=== PATIENT | female | born 1985 | race Caucasian/White ===

== ENCOUNTER → 2019-09-26 09:58 | Outpatient (CLI) | payer OTHER, SELFPAY ==
--- NOTE | 2019-09-26 10:00 | DI.RAD.S_ITS ---
PROCEDURE: XR RIBS LT MIN 3V W CXR1V INDICATIONS: L rib pain behind shoulder pain TECHNIQUE: 3 views of the left ribs were acquired, along with a single view chest. COMPARISON: None. FINDINGS: Surgical changes and devices: None. Bones and chest wall: No fractures or dislocations. No suspicious bony lesions. Overlying soft tissues appear unremarkable. Lungs and pleura: No pleural effusions or pneumothorax. Lungs appear clear. Mediastinum: Mediastinal contours appear normal. Heart size is normal. IMPRESSION: No gross left rib fracture or dislocation. No acute cardiopulmonary pathology. Dictated by: Crow Jara M.D. on 09/26/2019 at 10:31 Approved by: Crow Jara M.D. on 09/26/2019 at 10:36
== END ==
PROVIDERS: PCP Registered Nurse Diabetes Educator; Visit Provider Nurse Practitioner
DX: R07.81 Pleurodynia (principal)
CPT/HCPCS: 71101

== ENCOUNTER → 2020-06-08 08:12 | Outpatient (CLI) | payer OTHER, SELFPAY ==
[2020-06-08 09:40] LABS: Add Manual Diff / Slide Review NO; Basophils Absolute Auto 0 /uL (0-100); Basophils Percent Auto 0.2 % (0-2); Eosinophils Absolute Auto 100 /uL (0-450); Eosinophils Percent Auto 2.2 % (2-4); Hematocrit 40.8 % (36-46); Hemoglobin 14.4 g/dL (12.0-16.0); Lymphocytes Absolute Auto 1300 /uL (1100-4500); Lymphocytes Percent Auto 19.9 % (25-40); Mean Corpuscular HGB Conc 35.2 % (30-36); Mean Corpuscular Hemoglobin 33.7 PG (26-34); Mean Corpuscular Volume 95.8 fL (80-100); Monocytes Absolute Auto 400 /uL (0-900); Monocytes Percent Auto 6.6 % (3-14); Neutrophils Absolute Auto 4600 /uL (1500-7000); Neutrophils Percent Auto 71.1 % (50-75); Platelet Count 201 X10^3/uL (150-400); Red Blood Cell Count 4.26 X10^6/uL (4.0-5.2); Red Cell Distribution Width 12.7 % (11.6-14.8); White Blood Cell Count 6.4 X10^3/uL (4.5-11.0)
[2020-06-08 09:52] LABS: Alanine Aminotransferase 23 IU/L (<35); Albumin 4.1 g/dL (3.5-5.0); Albumin Globulin Ratio 1.5 (1.0-2.8); Alkaline Phosphatase 50 U/L (38-126); Aspartate Aminotransferase 22 IU/L (14-36); BUN Creatinine Ratio 9.7 (6-22); Bilirubin Total 0.8 mg/dL (0.2-1.3); Blood Urea Nitrogen 7 mg/dL (7-17); Calcium 8.7 mg/dL (8.4-10.2); Carbon Dioxide 28 mmol/L (22-32); Chloride 102 mmol/L (98-107); Cholesterol 139 mg/dL (140-199); Estimated Glomerular Filt Rate > 60.0 mL/min (>60); Globulin 2.7 g/dL (1.7-4.1); Glucose 101 mg/dL (70-100); HDL Cholesterol 46 mg/dL (40-60); HEMOLYSIS < 15 (0-50); LDL Cholesterol Calculated 59 mg/dL (<100); Potassium 4.6 mmol/L (3.4-5.1); Sodium 137 mmol/L (137-145); Total Protein 6.8 g/dL (6.3-8.2); Triglycerides 169 mg/dL (35-150)
[2020-06-08 10:30] LABS: TSH w/ Reflex to FT4 0.63 uIU/mL (0.47-4.68)
[2020-06-08 10:35] LABS: Hepatitis B Surface Antigen NEGATIVE s/c (NEGATIVE)
[2020-06-08 10:40] LABS: HIV 1 & 2 Ab/Ag 4th Gen Combo NEGATIVE (NEGATIVE)
[2020-06-09 05:21] LABS: RPR Screen Non Reactive (Non Reactive)
== END ==
PROVIDERS: PCP Registered Nurse Diabetes Educator; Referring Provider Registered Nurse Diabetes Educator; Visit Provider Registered Nurse Diabetes Educator
DX: F10.10 Alcohol abuse, uncomplicated (principal); R53.83 Other fatigue; Z00.00 Encounter for general adult medical examination without abnormal findings; Z72.51 High risk heterosexual behavior; F32.9 Major depressive disorder, single episode, unspecified
CPT/HCPCS: 80053; 80061; 82306; 84443; 85025; 86592; 87340; 87389; 87491; 87591

== ENCOUNTER → 2021-02-16 07:49 | Outpatient (CLI) | payer OTHER, SELFPAY ==
[2021-02-16 09:10] LABS: COVID19 -Nasal RAPID Negative (Negative)
== END ==
PROVIDERS: PCP Registered Nurse Diabetes Educator; Visit Provider Physician Assistant
DX: R50.9 Fever, unspecified (principal); Z20.822 Contact with and (suspected) exposure to COVID-19
CPT/HCPCS: 87635

== ENCOUNTER → 2021-03-06 11:17 | Outpatient (CLI) | payer OTHER, SELFPAY | PROVIDERS: PCP Registered Nurse Diabetes Educator; Visit Provider Physician Assistant | DX: N39.0 Urinary tract infection, site not specified (principal) | CPT/HCPCS: 87077; 87086; 87186 ==

== ENCOUNTER → 2021-04-06 15:11 | Outpatient (CLI) | payer OTHER, SELFPAY | PROVIDERS: PCP Registered Nurse Diabetes Educator; Visit Provider Physician Assistant | DX: N34.3 Urethral syndrome, unspecified (principal) | CPT/HCPCS: 87077; 87086; 87186 ==

== ENCOUNTER → 2021-04-10 11:48 | Outpatient (CLI) | payer OTHER, SELFPAY ==
[2021-04-10 13:22] LABS: COVID19 -Nasal RAPID Negative (Negative)
== END ==
PROVIDERS: PCP Registered Nurse Diabetes Educator; Visit Provider Obstetrics & Gynecology
DX: Z01.812 Encounter for preprocedural laboratory examination (principal); Z20.822 Contact with and (suspected) exposure to COVID-19
CPT/HCPCS: 87635

== ENCOUNTER 2021-04-11 08:30 | Day surgery (SDC) | payer OTHER, SELFPAY ==
[2021-04-03 12:38] VITALS: BMI 22.1
[2021-04-11] VITALS (9 sets, daily range): BP systolic 90–121; BP diastolic 54–86; PULSE 65–681; RESP 11–18; TEMP 36–37; O2SAT 98–100; BMI 22.1
--- NOTE | 2021-04-11 | PATH_ITS ---
[facility] Accession Number: [id number] . 01 Material submitted: . fallopian tube - BILATERAL FALLOPIAN TUBES . 02 Diagnosis: Bilateral Fallopian Tubes, Bilateral Salpingectomy: Fallopian tubes x 2. Complete cross sections present. Negative for atypia or malignancy. V 04/15/2021 1050 Local . 02 Electronically signed: . Lois Rollins MD, Pathologist NPI- [id number] . 01 Gross description: . The specimen is received in formalin, labeled bilateral fallopian tubes and consists of two fallopian tubes measuring 5.0 cm in length by 0.9 cm in diameter and 6.1 cm in length by 0.9 cm in diameter. The serosa is pink-purple and smooth. There is a freire-pink mucosa and a stellate lumen measuring 0.4 cm in diameter. Claim Representative sections of each fallopian tube are submitted, to include the en face margin (blue), central cross-sections, and bisected fimbria in cassettes A1-A2. (EA:[id number]) /MRV 04/12/2021 1310 Local . 02 Pathologist provided ICD-10: N83.8 . 02 CPT . 941617 Performed at: 01 [facility] [address], [place], [place] [id number] MD Mike Garcia MD Phone: [phone] Performed at: 02 [facility] [address] [place], [place] [id number] MD Luciana James MD Phone: [phone]
[2021-04-11] MEDS: LACTATED RINGERS 1,000 ML 42 ML IV ×2 (09:14→11:26)
--- NOTE | 2021-04-11 09:42 | SUR.OPER ---
Lithotomy on padded OR bed, head on pillow, arms padded and tucked at sides. Legs secured in padded yellow fins stirrups.
--- NOTE | 2021-04-11 09:48 | PM.HP.1 ---
History of Present Illness History of Present Illness Date Patient Seen: 04/11/21 Time Patient Seen: 09:48 Chief complaint: SDC Narrative: Patient is a 35-year-old 4 para 2021 who presents for a laparoscopic bilateral salpingectomy, removal of Nexplanon, and TVT with cystoscopy. These procedures are being done due to desire for sterilization, Nexplanon in place, and stress urinary incontinence that has not improved with physical therapy. Patient History Medical History Anxiety Depression Dyslipidemia Impaired fasting blood sugar Surgical History History of third molar tooth extraction Status post tonsillectomy and adenoidectomy Family & Social History Social History: household members children Tobacco & Substance use: Tobacco type e-cigarettes,cannabis/marijuana Smoking Status Current every day smoker alcohol intake current alcohol intake frequency 0-2 drinks per day Substance Use Type former substance user Meds Home Medications and Allergies Home Medications Medication Instructions Recorded Confirmed Type etonogestrel 68 mg subdermal 1 implant SUBDERMAL CONT 05/31/20 04/06/21 History implant (Nexplanon) metronidazole 0.75 % topical cream 1 applic TOPICAL DAILY 12/17/20 04/11/21 History (MetroCream) phenazopyridine 100 mg tablet 100 mg PO TID PRN #6 tab 03/06/21 04/11/21 Rx (Pyridium) polymyxin B sulfate 10,000 1 drp OPHTHALMIC (EYE) QID 7 Days 04/06/21 04/11/21 Rx unit-trimethoprim 1 mg/mL eye #10 ml drops (Polytrim) Allergies Allergy/AdvReac Type Severity Reaction Status Date / Time No Known Drug Allergies Allergy Verified 04/06/21 15:25 Exam Vital Signs (past 8 hours): - 04/11/21 09:05 Temperature 98.6 F Pulse Rate 72 Respiratory Rate 18 Blood Pressure 121/86 Pulse Oximetry 100 Oxygen Delivery Method Room Air Oxygen Flow Rate 0 Narrative Exam Narrative: HEENT: No thyromegaly, no anterior cervical or supraclavicular lymphadenopathy. Lungs:Clear to auscultation bilaterally, no wheezes. Cardiovascular: Regular rate and rhythm, no murmurs, rubs, or gallops. Abdomen: No scars. No hepatosplenomegaly. No masses palpable. External genitalia: Normal Vagina: Normal Cervix: Normal Bimanual exam: 6 Week size anteverted uterus. Mobile. Assessment & Plan Assessment & Plan narrative: Assessment: 35-year-old 4 para 2021 who desires permanent sterilization, has Nexplanon in place, and has stress urinary incontinence despite physical therapy Plan: Laparoscopic bilateral salpingectomy, Nexplanon removal, TVT with cystoscopy The risks, benefits, and alternatives to the procedures were explained to the patient. The risks including bleeding, infection, injury to the bowel, bladder, ureters, and urethra. She understands these risks and agrees to proceed. A full par Q was held and consent form was signed. COVID-19 COVID-19 status: Negative Result date/Date tested (Pos, Neg/Pending): 04/10/21 Time Spent With Patient Time with patient: 15-24 minutes
--- NOTE | 2021-04-11 09:51 | PM.PREOP ---
Pre-operative Note COVID-19 COVID-19 status: Negative Result date/Date tested (Pos, Neg/Pending): 04/10/21 Interval Note History & Physical reviewed/Exam performed by Physician: Yes Changes to H&P: No H&P completed within 30 days and has changed as indicated here:: 04/11/21
[2021-04-11] MEDS: CEFAZOLIN 1 GM VIAL 2 GM IV (10:05)
[2021-04-11] MEDS: BUPIVACAINE 0.25% W/ EPI 30 ML VIAL 60 ML INJ (10:36)
--- NOTE | 2021-04-11 11:48 | PM.GYNOP.1 ---
Operative Date/Time/Diagnoses Date of procedure: 04/11/21 Time of procedure: 11:48 Pre-op diagnosis: Stress Urinary Incontinence Nexplanon in place Desires permanent sterilization Post-op diagnosis: same Procedure & Clinicians Procedure: Procedures Operation Date: 04/11/21 09:45 Actual Procedure Side Surgeon p Laparoscopic Salpingectomy Bilateral Lupis Vaughn MD s TVT w/ cystoscopy, removal of nexplanon Lupis Vaughn MD Indications: Desires permanent sterilization Nexplanon in place Stress urinary incontinence Surgeon: Lupis Vaughn Anesthesia Type: General and Local Operative Notes Findings: Normal uterus, tubes, ovaries, appendix, and gallbladder Nexplanon palpable on the underside of the left upper arm Increased urethrovesical angle with Valsalva Closure Type: primary Specimen(s): left tube and right tube Applied: catheter Estimated blood loss (mL): 20 Blood products transfused: none Procedure in detail: After informed consent was obtained, the patient was taken to the operating room where she was placed in the dorsal supine position. After adequate general endotracheal anesthesia was achieved, she was placed in the dorsal lithotomy position, and prepped and draped in the usual sterile fashion. A time-out was performed. A bivalve speculum was placed into the vagina and the anterior lip of the cervix was grasped with a single-tooth tenaculum. Cervical os was sequentially dilated until the Zumi uterine manipulator could pass easily into the endometrial cavity. The single-tooth tenaculum was removed from the anterior lip of the cervix. The bivalve speculum was removed from the vagina. Attention was turned to the abdomen where 6 cc of 0.25% Marcaine with epinephrine were injected in the umbilical fold. A 5 mm incision was made. The Veress needle was placed into the peritoneal cavity, and its placement confirmed by aspiration and drop test. The abdominal cavity was insufflated with 3.9 L of CO2. The Veress needle was removed, and a 5 mm trocar was placed without difficulty. Initial inspection of the pelvis and abdomen revealed the findings noted above. Two other 5 mm incisions were made after 6 cc of cord% Marcaine with epinephrine were injected 4 cm lateral to the midline. Two 5 mm trocars were placed under direct visualization. The right tube was grasped with an atraumatic grasper. Using the PlasmaKinetic was settings of 40 w, the mesosalpinx was cauterized and cut all the way down to the cornua of the uterus. The tube was amputated at the cornua. This was repeated on the patient's left tube. Hemostasis was achieved. The tubes were removed through the 5 mm trocar. There was no bleeding noted. The instruments were removed from the abdomen. The CO2 was allowed to escape. The trocars were removed. The incisions were repaired with 4-0 Biosyn in a subcuticular fashion. Steri-Strips and Allevyn dressings were placed. Attention was then turned to the vagina where weighted speculum was placed into the vagina. The patient was placed flat on the table with her thighs parallel to the floor. Allis clamps were placed lateral to the midline on the anterior wall approximately 1.5 cm away from the urethral meatus. A rigid catheter was placed into the bladder. 3 cc of 0.25% Marcaine with epinephrine were injected. A 1.5 cm incision was made in the midline. This was dissected out laterally with the Noble scissors. 100 cc of injectable saline were injected behind the pubic symphysis using a 20. Spinal needle, into the space of Retzius. With a rigid catheter in the bladder and the bladder neck retracted away from the patient's right side, 10 cc of 0.25% Marcaine with epinephrine were injected along the proposed path of the TVT. Using Hegar dilators up to # 6, the proposed space was dissected. This was repeated on the patient's left side with the bladder neck retracted away from the patient's left side. The TVT was directed towards the patient's right shoulder with the bladder neck retracted away from the patient's right side. The urogenital diaphragm was perforated and the TVT introducer came up behind the pubic symphysis about 2 cm away from the midline. A rubio was made in the skin and the TVT introducer was grasp with a Rocio. This was repeated on the patient's left side with the bladder neck retracted away from the patient's left side. The bladder was filled with 240 cc of sterile water. A cystoscopy was performed. A small piece of the introducer was visualized on the patient's left side. The bladder was emptied. The introducer was pulled back and redirected slightly more lateral on the patient's left side and up behind the pubic symphysis. The introducer was grasped. The bladder was refilled with 240 cc of sterile water. A cystoscopy was performed which showed a bubble at the dome and no perforation. A dilator was placed between the TVT and the urethra. The TVT was pulled up until snug against the dilator. The patient was made to cough and there was no leakage of urine. The TVT introducers were cut from the TVT. The plastic overlay was grasped with hemostats. The plastic was pulled up and removed without increasing the tension on the TVT. The TVT was cut below the skin line. Vaginally, the mucosal incision was closed with 3-0 Vicryl with a running interlocking suture. Hemostasis was achieved. The catheter was placed into the bladder and hooked up to the bag. The weighted speculum was removed from the vagina. Surgical glue was used to close the suprapubic incisions. Attention was then turned to the underside of the left upper arm which was prepped with chlorhexidine. The Nexplanon insertion site scar could be visualized. 5 cc of 0.25% Marcaine with epinephrine were injected along the Nexplanon and at the insertion site. A 3 mm incision was made. Using a curved hemostat with pressure on the opposite end of the Nexplanon, the Nexplanon was grasped and removed without difficulty. Pressure was held for hemostasis. Surgical glue was used to close the incision. An Allevyn dressing was placed. Sponge, lap, and instrument counts were correct x2. The patient tolerated the procedure well, and was taken to PACU in stable condition. Complications: other (cystotomy) Post-operative Condition: stable Disposition: PACU Plan for aftercare: Home after recovery
--- NOTE | 2021-04-11 13:32 | SUR.PHASEII ---
LEG BAG TEACHING COMPLETED. PATIENT ABLE TO GIVE RETURN DEMONSTRATION WITH VERBAL CUES. SHE DID VERY WELL. SHE CONFIRMS UNDERSTANDING OF ALL DIRECTIONS LISTED IN HER DC HM HANDOUTS AND PAPERWORK. SHE HAS AN APPT IN 1 WK FOR HER LOVE TO BE DC'D.
== END 2021-04-11 13:23 | disposition home or self-care (01) ==
PROVIDERS: PCP Registered Nurse Diabetes Educator; Referring Provider Obstetrics & Gynecology; Visit Provider Obstetrics & Gynecology
PROC: 0UT74ZZ Resection of Bilateral Fallopian Tubes, Percutaneous Endoscopic Approach (ICD-10-PCS; CPT 58661; principal; 2021-04-11 09:45)
PROC: 0TSD0ZZ Reposition Urethra, Open Approach (ICD-10-PCS; CPT 58661; 2021-04-11 09:45)
DX: Z30.2 Encounter for sterilization (principal); N39.3 Stress incontinence (female) (male); Z30.432 Encounter for removal of intrauterine contraceptive device; F41.9 Anxiety disorder, unspecified; F32.9 Major depressive disorder, single episode, unspecified; E78.5 Hyperlipidemia, unspecified
CPT/HCPCS: 58661; 57288; 11982; 81025; C1771; J0690; J1100; J1885; J2250; J2405; J2704; J3010

== ENCOUNTER → 2021-05-23 12:47 | Outpatient (CLI) | payer OTHER, SELFPAY ==
[2021-05-23 12:56] LABS: RBC Urine None Seen (0-5/HPF)
[2021-05-23 13:22] LABS: Appearance Urine UA CLOUDY; Bilirubin Urine UA NEGATIVE (NEGATIVE); Color Urine UA YELLOW; Glucose Urine UA NEGATIVE (Negative); Ketones Urine UA NEGATIVE (NEGATIVE); Leukocyte Esterase Urine UA 2+ (NEGATIVE); Nitrite Urine UA NEGATIVE (Negative); Occult Blood Urine UA NEGATIVE (Negative); Protein Urine UA NEGATIVE (Negative); Urobilinogen Urine UA 0.2 E.U./dL (0.2)
[2021-05-23 13:54] LABS: Bacteria Urine Moderate (10-30); Culture Indicated Urine Specimen Cultured; Squamous Epithelial Cell Urine 1-5 /HPF (0-5/HPF); WBC Urine 30-100/HPF (0-5/HPF)
== END ==
PROVIDERS: PCP Registered Nurse Diabetes Educator; Referring Provider Registered Nurse Diabetes Educator; Visit Provider Registered Nurse Diabetes Educator
DX: R30.0 Dysuria (principal)
CPT/HCPCS: 81001; 87077; 87086; 87186

== ENCOUNTER → 2021-06-04 12:13 | Outpatient (CLI) | payer OTHER, SELFPAY ==
[2021-06-04 13:10] LABS: Appearance Urine UA CLEAR; Bilirubin Urine UA NEGATIVE (NEGATIVE); Color Urine UA YELLOW; Glucose Urine UA NEGATIVE (Negative); Ketones Urine UA NEGATIVE (NEGATIVE); Leukocyte Esterase Urine UA TRACE (NEGATIVE); Nitrite Urine UA NEGATIVE (Negative); Occult Blood Urine UA NEGATIVE (Negative); Protein Urine UA NEGATIVE (Negative); Urobilinogen Urine UA 0.2 E.U./dL (0.2)
[2021-06-04 13:26] LABS: pH Urine UA 6.5 (4.5-8.0)
[2021-06-04 13:31] LABS: Bacteria Urine Occasional (0-1); Mucus Urine 1+ (Negative); RBC Urine None Seen (0-5/HPF); Squamous Epithelial Cell Urine 1-5 /HPF (0-5/HPF); WBC Urine 1-5/HPF (0-5/HPF)
== END ==
PROVIDERS: PCP Registered Nurse Diabetes Educator; Referring Provider Registered Nurse Diabetes Educator; Visit Provider Registered Nurse Diabetes Educator
DX: N39.0 Urinary tract infection, site not specified (principal)
CPT/HCPCS: 81001; 87086

== ENCOUNTER → 2021-08-09 13:25 | Outpatient (CLI) | payer OTHER, SELFPAY | PROVIDERS: PCP Registered Nurse Diabetes Educator; Visit Provider Nurse Practitioner Family | DX: R30.0 Dysuria (principal) | CPT/HCPCS: 87077; 87086; 87186 ==

== ENCOUNTER → 2021-08-14 13:48 | Outpatient (CLI) | payer OTHER, SELFPAY | PROVIDERS: PCP Registered Nurse Diabetes Educator; Visit Provider Registered Nurse Diabetes Educator | DX: R10.9 Unspecified abdominal pain (principal) | CPT/HCPCS: 87086 ==

== ENCOUNTER → 2021-09-03 14:13 | Outpatient (CLI) | payer OTHER, SELFPAY ==
--- NOTE | 2021-09-03 14:14 | DI.CT.S_ITS ---
PROCEDURE: CT ABDOMEN PELVIS WO/W CON INDICATIONS: Recurrent Klebsiella UTIs TECHNIQUE: After the administration of oral contrast, 5 mm thick sections acquired from the diaphragms to the iliac crests. After the administration of intravenous contrast, 5 mm thick sections acquired from the diaphragms to the symphysis. 5 mm thick coronal and sagittal reformats were acquired. For radiation dose reduction, the following was used: automated exposure control, adjustment of mA and/or kV according to patient size. COMPARISON: None. FINDINGS: Image quality: Excellent. ABDOMEN: Lung bases: Lung bases are clear. Heart size is normal. Solid organs: Liver is normal in size and enhancement. Decreased attenuation of the liver, compatible hepatic steatosis. Gallbladder demonstrates no significant abnormality. Biliary system is non-dilated. Pancreas enhances normally. Spleen is normal in size and enhancement. No adrenal nodules. Both kidneys are normal in size. No hydronephrosis or nephrolithiasis. Bowel and peritoneum: No evidence of intestinal obstruction or inflammatory change normal appearance of the appendix. No free fluid or air. Nodes and vessels: No retroperitoneal or mesenteric adenopathy by size criteria. Aorta and inferior vena are normal in caliber. Miscellaneous: Small fat containing periumbilical hernia. PELVIS: Genitourinary: Bladder wall thickness is normal. 1.9 cm hypoattenuating lesion in the left adnexa, most consistent with an ovarian cyst. Miscellaneous: No inguinal hernias or adenopathy. Bones: No suspicious bony lesions. No vertebral body compression fractures. IMPRESSION: 1. No significant abnormality. Dictated by: Brian Trevino M.D. on 09/03/2021 at 16:08 Approved by: Brian Trevino M.D. on 09/03/2021 at 16:12
== END ==
PROVIDERS: PCP Registered Nurse Diabetes Educator; Referring Provider Urology; Visit Provider Urology
DX: N39.0 Urinary tract infection, site not specified (principal); B96.1 Klebsiella pneumoniae [K. pneumoniae] as the cause of diseases classified elsewhere; N94.89 Other specified conditions associated with female genital organs and menstrual cycle; K42.9 Umbilical hernia without obstruction or gangrene
CPT/HCPCS: 74178; Q9967

== ENCOUNTER → 2022-04-21 08:57 | Outpatient (CLI) | payer OTHER, SELFPAY | PROVIDERS: PCP Registered Nurse Diabetes Educator; Visit Provider Nurse Practitioner Family | DX: R30.0 Dysuria (principal) | CPT/HCPCS: 87077; 87086 ==

== ENCOUNTER → 2022-05-15 12:23 | Outpatient (CLI) | payer OTHER, SELFPAY ==
[2022-05-15 13:34] LABS: COVID19 -Nasal RAPID Negative (Negative); Strep Grp A by PCR Rapid Negative (Negative)
== END ==
PROVIDERS: PCP Registered Nurse Diabetes Educator; Visit Provider Registered Nurse Diabetes Educator
DX: J02.9 Acute pharyngitis, unspecified (principal); Z20.822 Contact with and (suspected) exposure to COVID-19
CPT/HCPCS: 87070; 87635; 87651

== ENCOUNTER → 2022-05-15 12:33 | Outpatient (CLI) | payer OTHER, SELFPAY ==
[2022-05-15 13:52] LABS: Hematocrit 40.5 % (36-46); Hemoglobin 13.9 g/dL (12.0-16.0); Mean Corpuscular HGB Conc 34.3 % (30-36); Mean Corpuscular Hemoglobin 32.8 PG (26-34); Mean Corpuscular Volume 95.5 fL (80-100); Platelet Count 234 X10^3/uL (150-400); Red Blood Cell Count 4.24 X10^6/uL (4.0-5.2); Red Cell Distribution Width 12.7 % (11.6-14.8); White Blood Cell Count 7.1 X10^3/uL (4.5-11.0)
[2022-05-15 14:45] LABS: Alanine Aminotransferase 62 IU/L (<35); Albumin 4.2 g/dL (3.5-5.0); Albumin Globulin Ratio 1.4 (1.0-2.8); Alkaline Phosphatase 56 U/L (38-126); Aspartate Aminotransferase 57 IU/L (14-36); BUN Creatinine Ratio 11.8 (6-22); Bilirubin Total 1.4 mg/dL (0.2-1.3); Blood Urea Nitrogen 8 mg/dL (7-17); Calcium 8.9 mg/dL (8.4-10.2); Carbon Dioxide 27 mmol/L (22-32); Chloride 102 mmol/L (98-107); Cholesterol 162 mg/dL (140-199); Estimated Glomerular Filt Rate > 60 mL/min (>60); Globulin 3.1 g/dL (1.7-4.1); Glucose 105 mg/dL (70-100); HDL Cholesterol 49 mg/dL (40-60); HEMOLYSIS < 15 (0-50); LDL Cholesterol Calculated 101 mg/dL (<100); Sodium 138 mmol/L (137-145); Total Protein 7.3 g/dL (6.3-8.2); Triglycerides 58 mg/dL (35-150)
[2022-05-15 15:21] LABS: TSH w/ Reflex to FT4 0.25 uIU/mL (0.47-4.68)
[2022-05-15 16:03] LABS: Free T4, Direct Thyroxine 1.26 ng/dL (0.78-2.19)
[2022-05-15 16:30] LABS: Urine N gonorrhoeae NOT DETECTED
[2022-05-15 16:58] LABS: Urine Chlamydia NOT DETECTED
[2022-05-16 07:37] LABS: HSV Type 1 AB, IgG <0.91 index (0.00-0.90); Hepatitis B Core AB w/Reflex Negative (Negative); RPR Screen Non Reactive (Non Reactive)
[2022-05-16 15:43] LABS: Hepatitis B Surface Antigen NEGATIVE s/c (NEGATIVE)
[2022-05-16 16:18] LABS: HIV 1 & 2 Ab/Ag 4th Gen Combo NEGATIVE (NEGATIVE); Hep C Virus Ab w/Reflex Quant NEGATIVE s/c (NEGATIVE)
== END ==
PROVIDERS: PCP Registered Nurse Diabetes Educator; Referring Provider Registered Nurse Diabetes Educator; Visit Provider Registered Nurse Diabetes Educator
DX: Z00.00 Encounter for general adult medical examination without abnormal findings (principal); J02.9 Acute pharyngitis, unspecified; Z20.822 Contact with and (suspected) exposure to COVID-19
CPT/HCPCS: 36415; 80053; 80061; 84439; 84443; 85027; 86592; 86695; 86696; 86704; 86803; 87070; 87340; 87389; 87491; 87591; 87635; 87651

== ENCOUNTER → 2022-08-18 08:26 | Outpatient (CLI) | payer OTHER, SELFPAY | PROVIDERS: PCP Registered Nurse Diabetes Educator; Visit Provider Physician Assistant Medical | DX: R30.0 Dysuria (principal) | CPT/HCPCS: 87077; 87086; 87186 ==

== ENCOUNTER → 2023-02-25 16:01 | Outpatient (CLI) | payer OTHER, SELFPAY ==
[2023-02-25 17:32] LABS: Hematocrit 38.2 % (36-46); Hemoglobin 13.5 g/dL (12.0-16.0); Mean Corpuscular HGB Conc 35.2 % (30-36); Mean Corpuscular Hemoglobin 32.9 PG (26-34); Mean Corpuscular Volume 93.4 fL (80-100); Platelet Count 181 X10^3/uL (150-400); Red Blood Cell Count 4.09 X10^6/uL (4.0-5.2); Red Cell Distribution Width 14.3 % (11.6-14.8); White Blood Cell Count 5.3 X10^3/uL (4.5-11.0)
[2023-02-25 17:58] LABS: Alanine Aminotransferase 35 IU/L (<35); Albumin 4.3 g/dL (3.5-5.0); Albumin Globulin Ratio 1.3 (1.0-2.8); Alkaline Phosphatase 47 U/L (38-126); Aspartate Aminotransferase 40 IU/L (14-36); BUN Creatinine Ratio 20.6 (6-22); Bilirubin Total 2.5 mg/dL (0.2-1.3); Blood Urea Nitrogen 13 mg/dL (7-17); Calcium 9.4 mg/dL (8.4-10.2); Carbon Dioxide 29 mmol/L (22-32); Chloride 99 mmol/L (98-107); Estimated Glomerular Filt Rate > 60 mL/min (>60); Globulin 3.2 g/dL (1.7-4.1); Glucose 87 mg/dL (70-100); HEMOLYSIS < 15 (0-50); Potassium 4.2 mmol/L (3.4-5.1); Sodium 135 mmol/L (137-145); Total Protein 7.5 g/dL (6.3-8.2)
[2023-02-25 18:13] LABS: Free T4, Direct Thyroxine 0.97 ng/dL (0.78-2.19)
[2023-02-25 18:27] LABS: Thyroid Stimulating Hormone 0.439 uIU/mL (0.47-4.68)
[2023-02-26 10:55] LABS: Thyroid Peroxidase Antibodies <9 IU/mL (0-34); Triiodothyronine T3 Total 113 ng/dL (71-180)
[2023-02-27 17:20] LABS: Thyroid Stimulating Immunoglob < 0.10 IU/L (0.00-0.55)
== END ==
PROVIDERS: PCP Registered Nurse Diabetes Educator; Referring Provider Registered Nurse Diabetes Educator; Visit Provider Registered Nurse Diabetes Educator
DX: F10.10 Alcohol abuse, uncomplicated (principal); F32.9 Major depressive disorder, single episode, unspecified; F41.9 Anxiety disorder, unspecified; R79.89 Other specified abnormal findings of blood chemistry
CPT/HCPCS: 36415; 80053; 84439; 84443; 84445; 84480; 85027; 86376

== ENCOUNTER → 2023-06-19 10:39 | Outpatient (CLI) | payer OTHER, SELFPAY ==
[2023-06-19 12:33] LABS: Alanine Aminotransferase 31 IU/L (<35); Albumin 4.6 g/dL (3.5-5.0); Albumin Globulin Ratio 1.4 (1.0-2.8); Alkaline Phosphatase 52 U/L (38-126); Aspartate Aminotransferase 38 IU/L (14-36); Bilirubin Total 1.2 mg/dL (0.2-1.3); Globulin 3.2 g/dL (1.7-4.1); HEMOLYSIS < 15 (0-50); Total Protein 7.8 g/dL (6.3-8.2)
[2023-06-19 12:36] LABS: Prothrombin Time 11.4 SECONDS (10.1-12.7)
[2023-06-19 12:43] LABS: Prolactin 19.8 ng/mL (3.0-18.6)
[2023-06-19 12:44] LABS: Follicle Stimulating Hormone 6.88 mIU/mL; Luteinizing Hormone 18.3 mIU/mL
[2023-06-19 12:59] LABS: Estradiol, Total 263.2 pg/mL
[2023-06-23 22:14] LABS: IGF-1 151 ng/mL (84-281)
== END ==
PROVIDERS: PCP Registered Nurse Diabetes Educator; Referring Provider Registered Nurse Diabetes Educator; Visit Provider Registered Nurse Diabetes Educator
DX: R74.8 Abnormal levels of other serum enzymes (principal); R17 Unspecified jaundice; R79.89 Other specified abnormal findings of blood chemistry
CPT/HCPCS: 36415; 80076; 82670; 83001; 83002; 84146; 84305; 85610

== ENCOUNTER → 2023-08-22 10:42 | Outpatient (CLI) | payer OTHER, SELFPAY ==
[2023-08-22 11:55] LABS: Vitamin D 25 Hydroxy (D3) 45.8 ng/mL (30.0-100.0)
[2023-08-22 11:58] LABS: C-Reactive Protein Quant 0.5 mg/dL (<1.0)
[2023-08-22 12:06] LABS: Erythrocyte Sedimentation Rate 1 MM/HR (0-20)
[2023-08-22 12:13] LABS: Prolactin 15.7 ng/mL (3.0-18.6)
[2023-08-22 12:14] LABS: Free T4, Direct Thyroxine 1.08 ng/dL (0.78-2.19)
[2023-08-22 12:27] LABS: Thyroid Stimulating Hormone 0.371 uIU/mL (0.47-4.68)
[2023-08-22 12:46] LABS: Vitamin B12 Reflex MMA if <400 498 pg/mL (239-931)
[2023-08-24 12:21] LABS: Triiodothyronine T3 Total 100 ng/dL (71-180)
[2023-08-31 15:07] LABS: HLA B27 Negative (.)
== END ==
PROVIDERS: PCP Registered Nurse Diabetes Educator; Referring Provider Registered Nurse Diabetes Educator; Visit Provider Registered Nurse Diabetes Educator
DX: R53.83 Other fatigue (principal); F32.9 Major depressive disorder, single episode, unspecified; F41.9 Anxiety disorder, unspecified; E22.1 Hyperprolactinemia; R79.89 Other specified abnormal findings of blood chemistry
CPT/HCPCS: 36415; 81374; 82306; 82607; 84146; 84439; 84443; 84480; 85651; 86140